=== PATIENT | male | born 1965 | race Caucasian/White ===

== ENCOUNTER 2016-10-31 17:44 | Inpatient (IN) | payer SELFPAY ==
[~2016-10-31] VITALS: Ht 162.6 cm; Wt 65.8 kg
[2016-10-31] MEDS ORDERED: KETOROLAC 60MG/2ML VIAL IM ONE (19:15)
[2016-10-31 19:30] LABS: PLATELET 115 x1000/uL (130-400); RED BLOOD CELL COUNT 3.12 mill/uL (4.7-6.1); RED CELL DISTRIBUTION WIDTH 22.5 % (11.6-14.6)
[2016-10-31 19:36] LABS: HEMOGLOBIN 5.3 g/dL (14.0-18.0)
[2016-10-31 19:47] LABS: CARBON DIOXIDE 27 mEq/L (21-32); CHLORIDE 103 mEq/L (98-107)
[2016-10-31 19:54] LABS: ETHANOL BLOOD 449 mg/dL
[2016-10-31 21:13] LABS: TOTAL IRON BINDING CAPACITY 415 ug/dL (250-450)
[2016-10-31] MEDS ORDERED: KETOROLAC 30MG/ML VIAL IV ONE (21:30)
[2016-10-31] MEDS ORDERED: IPRATROPIUM/ALBUTEROL 0.5-3(2.5)MG/3ML NEB INH PRN (23:15)
[2016-10-31] MEDS ORDERED: GUAIFENESIN 200MG/10ML SUGAR FREE UDC PO PRN (23:15)
[2016-10-31] MEDS ORDERED: DOCUSATE SODIUM 100MG CAPSULE PO PRN (23:15)
[2016-10-31] MEDS ORDERED: NITROGLYCERIN 0.4MG TABLET SL SL PRN (23:15)
[2016-10-31] MEDS ORDERED: ZOLPIDEM TARTRATE 5MG TABLET PO PRN (23:15)
[2016-10-31] MEDS ORDERED: NA PHOS,M-B/NA PHOS,DI-BA ENEMA 118ML PR PRN (23:15)
[2016-10-31] MEDS ORDERED: MAGNESIUM/ALUMINUM HYDROXIDE/SIMETHICONE 30ML UDC PO PRN (23:15)
[2016-10-31] MEDS ORDERED: CLONIDINE 0.1MG TABLET PO PRN (23:15)
[2016-10-31] MEDS ORDERED: ONDANSETRON HCL 4MG/2ML VIAL IV PRN (23:15)
[2016-10-31 23:35] LABS: INR 1.1; PROTHROMBIN TIME 11.1 sec
[2016-10-31 23:48] LABS: HEMATOCRIT 19.7 % (42.0-52.0); HEMOGLOBIN 5.5 g/dL (14.0-18.0)
[2016-11-01] VITALS (17 sets, daily range): BP systolic 114–151; BP diastolic 57–89
[2016-11-01 00:12] LABS: FOLIC ACID (FOLATE) SERUM 9.8 ng/mL (>5.38)
[2016-11-01] MEDS ORDERED: MVI, ADULT NO.1 10 ML, FOLIC ACID 1 MG, THIAMINE HCL 100 MG in SODIUM CHLORIDE 0.9% 1,0... IV NR ×4 (02:30)
[2016-11-01] MEDS: KETOROLAC 15MG/ML VIAL IV PRN ×2 (02:36→20:55)
[2016-11-01 03:19] LABS: *AMPHETAMINES SCREEN URINE PRESUMTIVE POSITIVE (NEGATIVE); *BARBITURATES SCREEN URINE NEGATIVE (NEGATIVE); *BENZODIAZEPINES SCREEN URINE NEGATIVE (NEGATIVE); *COCAINE SCREEN URINE NEGATIVE (NEGATIVE); CANNABINOID URINE SCREEN NEGATIVE (NEGATIVE); METHADONE URINE SCREEN NEGATIVE (NEGATIVE); OPIATES URINE SCREEN NEGATIVE (NEGATIVE); PHENCYCLIDINE URINE SCREEN NEGATIVE (NEGATIVE)
[2016-11-01] MEDS: PANTOPRAZOLE SODIUM 40 MG/VIAL IV SCH (11:51)
[2016-11-01 13:24] LABS: HEMATOCRIT. 26.8 % (42.0-52.0); HEMOGLOBIN. 8.1 g/dL (14.0-18.0); MEAN CORPUSCULAR HEMOGLOBIN 20.6 pg (28.0-32.0); MEAN CORPUSCULAR VOLUME 68.6 fL (80.0-94.0); MEAN PLATELET VOLUME 8.5 fl (7.4-10.4); PLATELET 96 x1000/uL (130-400); RED BLOOD CELL COUNT 3.91 mill/uL (4.7-6.1); RED CELL DISTRIBUTION WIDTH 29.4 % (11.6-14.6)
[2016-11-01 13:48] LABS: PLATELET ESTIMATE DECREASED
[2016-11-01 13:54] LABS: CARBON DIOXIDE 26 mEq/L (21-32); CHLORIDE 102 mEq/L (98-107)
[2016-11-01] MEDS ORDERED: MAGNESIUM 1 G PREMIX 100 ML IV NR (17:00)
[2016-11-01] MEDS: IRON SUCROSE COMPLEX 100 MG/5 ML ML IV SCH (18:17)
[2016-11-01] MEDS: DIPHENHYDRAMINE 50MG/ML VIAL IV PRN (20:55)
[2016-11-02] VITALS: BP 162/65
[2016-11-02 04:00] VITALS: BP 131/53
[2016-11-02 05:29] LABS: BASOPHILS % 0.4 % (0.0-2.0); HEMATOCRIT. 28.6 % (42.0-52.0); HEMOGLOBIN. 8.7 g/dL (14.0-18.0); LYMPHOCYTES % 23.3 % (20.0-50.0); MEAN CORPUSCULAR HEMOGLOBIN 20.9 pg (28.0-32.0); MEAN PLATELET VOLUME 8.7 fl (7.4-10.4); NEUTROPHILS % 62.3 % (40.0-76.0); PLATELET 90 x1000/uL (130-400); RED BLOOD CELL COUNT 4.15 mill/uL (4.7-6.1); RED CELL DISTRIBUTION WIDTH 28.9 % (11.6-14.6)
[2016-11-02] MEDS: DIPHENHYDRAMINE 50MG/ML VIAL IV PRN ×3 (07:03→22:01)
[2016-11-02] MEDS: LORAZEPAM 2MG/ML CPJ IV PRN ×4 (07:04→20:00)
[2016-11-02 08:00] VITALS: BP 133/71
[2016-11-02] MEDS: PANTOPRAZOLE SODIUM 40 MG/VIAL IV SCH (11:57)
[2016-11-02 12:00] VITALS: BP 119/50
[2016-11-02 16:00] VITALS: BP 125/58
[2016-11-02] MEDS: CHLORDIAZEPOXIDE 25MG CAPSULE PO SCH ×2 (18:17→23:06)
[2016-11-02] MEDS: IRON SUCROSE COMPLEX 100 MG/5 ML ML IV SCH (19:29)
[2016-11-02 20:00] VITALS: BP 112/71
[2016-11-03] VITALS (17 sets, daily range): BP systolic 87–137; BP diastolic 45–80
[2016-11-03] MEDS: LORAZEPAM 2MG/ML CPJ IV PRN ×5 (00:16→22:06)
[2016-11-03] MEDS: KETOROLAC 15MG/ML VIAL IV PRN (05:10)
[2016-11-03] MEDS: CHLORDIAZEPOXIDE 25MG CAPSULE PO SCH ×3 (05:10→21:24)
[2016-11-03] MEDS: DIPHENHYDRAMINE 50MG/ML VIAL IV PRN (06:36)
[2016-11-03] MEDS: PANTOPRAZOLE SODIUM 40 MG/VIAL IV SCH (10:06)
[2016-11-03] MEDS ORDERED: LORAZEPAM 2MG/ML CPJ IV PRN (11:15)
[2016-11-03] MEDS: MULTIVITAMINS,THER W-MINERALS TABLET PO SCH (11:30)
[2016-11-03] MEDS: FOLIC ACID 1MG TABLET PO SCH (11:30)
[2016-11-03] MEDS ORDERED: LORAZEPAM 20 MG in DEXT 5% WATER 90 ML IV PRN (18:30)
[2016-11-03] MEDS: FOLIC ACID 1 MG, THIAMINE HCL 100 MG, MVI, ADULT NO.1 10 ML in DEXTROSE 5% WATER 1,000 ML IV SCH ×4 (19:01)
[2016-11-03] MEDS: ACETAMINOPHEN 325MG TABLET PO PRN (21:24)
[2016-11-04] VITALS (39 sets, daily range): BP systolic 74–163; BP diastolic 30–81
[2016-11-04] MEDS: PIPERACILLIN/TAZ 3.375G PREMIX 50 ML IV SCH ×4 (00:19→23:40)
[2016-11-04] MEDS: CHLORDIAZEPOXIDE 25MG CAPSULE PO SCH ×3 (06:00→21:01)
[2016-11-04] MEDS: PANTOPRAZOLE SODIUM 40 MG/VIAL IV SCH (09:01)
[2016-11-04] MEDS: THIAMINE HCL 100MG TABLET PO SCH (09:01)
[2016-11-04] MEDS: FOLIC ACID 1MG TABLET PO SCH (09:01)
[2016-11-04] MEDS: MULTIVITAMINS,THER W-MINERALS TABLET PO SCH (09:01)
[2016-11-04 11:51] LABS: HEMATOCRIT. 27.9 % (42.0-52.0); HEMOGLOBIN. 8.3 g/dL (14.0-18.0); MEAN CORPUSCULAR HEMOGLOBIN 20.6 pg (28.0-32.0); MEAN CORPUSCULAR VOLUME 69.5 fL (80.0-94.0); MEAN PLATELET VOLUME 8.7 fl (7.4-10.4); PLATELET 124 x1000/uL (130-400); RED BLOOD CELL COUNT 4.02 mill/uL (4.7-6.1)
[2016-11-04 12:04] LABS: CARBON DIOXIDE 27 mEq/L (21-32); CHLORIDE 103 mEq/L (98-107)
[2016-11-04] MEDS ORDERED: POTASSIUM CHLORIDE INJ 40 MEQ in DEXT 5% WATER 250 ML IV NR ×2 (14:00→18:00)
[2016-11-04 14:27] LABS: PLATELET ESTIMATE SLIGHTLY DECREASED
[2016-11-04] MEDS: FOLIC ACID 1 MG, THIAMINE HCL 100 MG, MVI, ADULT NO.1 10 ML in DEXTROSE 5% WATER 1,000 ML IV SCH ×4 (18:28)
[2016-11-05] VITALS (24 sets, daily range): BP systolic 105–195; BP diastolic 27–79
[2016-11-05] MEDS: CHLORDIAZEPOXIDE 25MG CAPSULE PO SCH ×3 (05:03→21:09)
[2016-11-05] MEDS: PANTOPRAZOLE SODIUM 40 MG/VIAL IV SCH (08:40)
[2016-11-05] MEDS: MULTIVITAMINS,THER W-MINERALS TABLET PO SCH (08:40)
[2016-11-05] MEDS: THIAMINE HCL 100MG TABLET PO SCH (08:40)
[2016-11-05] MEDS: FOLIC ACID 1MG TABLET PO SCH (08:40)
[2016-11-05] MEDS: PIPERACILLIN/TAZ 3.375G PREMIX 50 ML IV SCH ×2 (12:42→17:18)
[2016-11-05] MEDS: ACETAMINOPHEN 325MG TABLET PO PRN ×2 (13:02→23:06)
[2016-11-05 16:09] LABS: CARBON DIOXIDE 27 mEq/L (21-32); CHLORIDE 98 mEq/L (98-107)
[2016-11-05] MEDS ORDERED: POTASSIUM CHLORIDE INJ 40 MEQ in DEXT 5% WATER 250 ML IV NR (20:00)
[2016-11-06] MEDS: PIPERACILLIN/TAZ 3.375G PREMIX 50 ML IV SCH ×2 (00:10→08:22)
[2016-11-06 04:00] VITALS: BP 109/57
[2016-11-06] MEDS: CHLORDIAZEPOXIDE 25MG CAPSULE PO SCH (06:23)
[2016-11-06 08:00] VITALS: BP 119/59
[2016-11-06 08:13] LABS: CARBON DIOXIDE 28 mEq/L (21-32); CHLORIDE 103 mEq/L (98-107)
[2016-11-06] MEDS: FOLIC ACID 1MG TABLET PO SCH (08:23)
[2016-11-06] MEDS: MULTIVITAMINS,THER W-MINERALS TABLET PO SCH (08:23)
[2016-11-06] MEDS: THIAMINE HCL 100MG TABLET PO SCH (08:23)
[2016-11-06] MEDS: PANTOPRAZOLE SODIUM 40 MG/VIAL IV SCH (08:23)
[2016-11-06] MEDS ORDERED: POTASSIUM CHLORIDE 20MEQ TABLET SR PO SCH (11:28)
[2016-11-06 12:00] VITALS: BP 126/56
[2016-11-06 16:16] VITALS: BP 121/64
[2016-11-06 20:00] VITALS: BP 109/65
[2016-11-07] VITALS: BP 106/81
[2016-11-07 04:00] VITALS: BP 110/80
[2016-11-07 08:00] VITALS: BP 107/57
[2016-11-07] MEDS: MULTIVITAMINS,THER W-MINERALS TABLET PO SCH (08:51)
[2016-11-07] MEDS: FOLIC ACID 1MG TABLET PO SCH (08:51)
[2016-11-07] MEDS: PANTOPRAZOLE SODIUM 40 MG/VIAL IV SCH (08:51)
[2016-11-07] MEDS: THIAMINE HCL 100MG TABLET PO SCH (08:51)
[2016-11-07 12:00] VITALS: BP 100/51
[2016-11-07 16:18] VITALS: BP 101/66
[2016-11-07] MEDS: FOLIC ACID 1 MG, THIAMINE HCL 100 MG, MVI, ADULT NO.1 10 ML in DEXTROSE 5% WATER 1,000 ML IV SCH ×4 (17:55)
[2016-11-07 20:00] VITALS: BP 117/69
[2016-11-08] VITALS: BP 117/66
[2016-11-08 04:00] VITALS: BP 117/52
[2016-11-08 07:42] VITALS: BP 110/64
[2016-11-08] MEDS: FOLIC ACID 1MG TABLET PO SCH (08:33)
[2016-11-08] MEDS: MULTIVITAMINS,THER W-MINERALS TABLET PO SCH (08:33)
[2016-11-08] MEDS: PANTOPRAZOLE SODIUM 40 MG/VIAL IV SCH (08:33)
[2016-11-08] MEDS: THIAMINE HCL 100MG TABLET PO SCH (08:33)
[2016-11-08 11:57] VITALS: BP 105/51
[2016-11-08 15:37] VITALS: BP 103/47
[2016-11-08 16:00] VITALS: BP 103/47
== END 2016-11-08 18:47 | disposition home or self-care (01) | DRG 663 ==
LOC: ER 18:51 → 6EST 23:06 → ENRESERV 23:34 → 6EST 11-02 10:46 → CVICU 11-03 17:03 → 8WST 11-05 15:00
PROVIDERS: ADMIT Internal Medicine; ATTEND Internal Medicine
PROC: 30233N1 Transfusion of Nonautologous Red Blood Cells into Peripheral Vein, Percutaneous Approach (ICD-10-PCS; principal; 2016-10-31)
DX: D64.9 Anemia, unspecified (principal); E44.0 Moderate protein-calorie malnutrition; F10.239 Alcohol dependence with withdrawal, unspecified; E87.6 Hypokalemia; Y90.8 Blood alcohol level of 240 mg/100 ml or more; F15.10 Other stimulant abuse, uncomplicated; W14.XXXA Fall from tree, initial encounter; Y93.H2 Activity, gardening and landscaping; Y92.89 Other specified places as the place of occurrence of the external cause; Y99.8 Other external cause status; Z71.41 Alcohol abuse counseling and surveillance of alcoholic; Z68.24 Body mass index [BMI] 24.0-24.9, adult
CPT/HCPCS: 36415; 70450; 70486; 71101; 71260; 72125; 73552; 74177; 80048; 80053; 80076; 80305; 82270; 82607; 82746; 82962; 83036; 83540; 83550; 83735; 85014; 85018; 85025; 85027; 85610; 86850; 86900; 86920; 87040; 87086; 93970; 96374; 96376; 97116; 97162; 97530; 99285; C1893; C9113; G0482; J1200; J1885; J2060; J2543; J3411; J3475; J3480; J3490; J7030; J7040; J7050; J7060; J7070; P9016; A4315